=== PATIENT | female | born 1960 | race Caucasian/White ===

== ENCOUNTER 2018-03-12 16:01 | Emergency (ER) | payer SELFPAY ==
[2018-03-12 16:55] LABS: Bilirubin Negative (Negative); Blood, Urine Negative (Negative); Clarity CLEAR (Clear); Glucose, Urine (Dipstick) Negative (Negative); Leukocyte Negative (Negative); Nitrite Negative (Negative); Protein, Urine (Dipstick) Negative (Neg-Trace); Specific Gravity, Urine 1.017 (1.002-1.036); Urobilinogen 0.2 mg/dL (0.2-1.0)
[2018-03-12 17:08] LABS: #Eosinphils 0.1 thou/uL (0.0-0.7); #Lymphocytes 2.5 thou/uL (1.20-3.40); #Monocytes 0.5 thou/uL (0.11-0.59); #Neutrophils 3.3 thou/uL (1.40-6.50); %Basophils 0.4 % (0.0-1.0); %Eosinophils 1.1 % (0.0-10.0); %Lymphocytes 39.1 % (21.0-51.0); %Neutrophils 51.4 % (42.0-75.0); Hemoglobin 17.7 g/dL (12.0-16.0); Mean Corpuscular HGB CONC 35.1 g/dL (32.0-36.0); Mean Corpuscular Hemoglobin 33.8 pg (27.0-31.0); Mean Corpuscular Volume 96.2 fl (81.0-99.0); Platelet Count 213 thou/uL (130-400); RBC Distribution Width 12.2 % (11.5-14.5); Red Blood Cell (RBC) Count 5.24 mill/uL (4.20-5.40); White Blood Cell (WBC) Count 6.5 thou/uL (4.8-10.8)
[2018-03-12 17:30] LABS: ALT (SGPT) 36 U/L (8-55); AST (SGOT) 30 U/L (5-34); Albumin 4.2 g/dL (3.5-5.0); Alkaline Phosphatase 91 U/L (40-150); Anion Gap 16 mmol/L (10-20); BUN (Urea Nitrogen) 10 mg/dL (9.8-20.1); Bilirubin, Total 0.5 mg/dL (0.2-1.2); Calc. Creatinine Clearance 0 mL/min (70-130); Calcium 9.7 mg/dL (7.8-10.44); Carbon Dioxide 23 mmol/L (22-29); Chloride 105 mmol/L (98-107); Estimated GFR-MDRD 70; Globulin 2.9 g/dL (2.4-3.5); Glucose 89 mg/dL (70-105); Potassium 4.1 mmol/L (3.5-5.1); Protein, Total 7.1 g/dL (6.0-8.3); Sodium 140 mmol/L (136-145)
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
[2018-03-12 17:34] LABS: CKMB 0.8 ng/mL (0-6.6); Troponin I Less than 0.010 ng/mL (< 0.028)
== END 2018-03-12 19:44 | disposition home or self-care (01) ==
LOC: ERS 16:01
DX: T14.8XXA Other injury of unspecified body region, initial encounter (principal); F41.9 Anxiety disorder, unspecified; F32.9 Major depressive disorder, single episode, unspecified; F17.210 Nicotine dependence, cigarettes, uncomplicated; W19.XXXA Unspecified fall, initial encounter
CPT/HCPCS: 36415; 70450; 80053; 81003; 82553; 84484; 85025; 93005; 96360

== ENCOUNTER 2019-06-18 22:21 | Inpatient (IN) | payer BC, SELFPAY ==
[2019-06-18] MEDS ORDERED: fentaNYL Citrate/PF 2,000 MCG in Sodium Chloride 0.9% 60 ML IV SCH (22:33)
[2019-06-18 22:44] LABS: #Eosinphils 0.1 thou/uL (0.0-0.7); #Lymphocytes 0.8 thou/uL (1.20-3.40); #Monocytes 0.7 thou/uL (0.11-0.59); #Neutrophils 13.4 thou/uL (1.40-6.50); %Basophils 0.1 % (0.0-1.0); %Eosinophils 0.4 % (0.0-10.0); %Lymphocytes 5.2 % (21.0-51.0); %Monocytes 4.8 % (0.0-10.0); %Neutrophils 89.6 % (42.0-75.0); Hemoglobin 14.6 g/dL (12.0-16.0); Mean Corpuscular HGB CONC 34.8 g/dL (32.0-36.0); Mean Corpuscular Hemoglobin 32.3 pg (27.0-31.0); Mean Corpuscular Volume 92.8 fL (78.0-98.0); Platelet Count 221 thou/uL (130-400); RBC Distribution Width 11.3 % (11.5-14.5); Red Blood Cell (RBC) Count 4.53 mill/uL (4.20-5.40)
[2019-06-18 22:52] LABS: Bilirubin Negative (Negative); Blood, Urine 1+ (Negative); Clarity Clear (Clear); Glucose, Urine (Dipstick) Normal (Negative); Leukocyte Negative Leu/uL (Negative); Mucous/LPF Rare LPF (<2+); Nitrite Negative (Negative); Protein, Urine (Dipstick) 100 mg/dL (Neg-Trace); RBC/HPF 0-3 HPF (0-3); Squamous Epithelial 0-3 HPF (0-3); Urobilinogen Normal mg/dL (Less than 2); WBC/HPF 0-3 HPF (0-3)
[2019-06-18 22:56] LABS: Bacteria/HPF Rare-Few HPF (None Seen)
[2019-06-18 23:05] LABS: ALT (SGPT) 20 U/L (8-55); AST (SGOT) 20 U/L (5-34); Albumin 3.4 g/dL (3.5-5.0); Alkaline Phosphatase 76 U/L (40-150); Anion Gap 13 mmol/L (10-20); BUN (Urea Nitrogen) 15 mg/dL (9.8-20.1); Bilirubin, Total 0.3 mg/dL (0.2-1.2); CK (CPK) 57 U/L (29-168); Calc. Creatinine Clearance 0 mL/min (70-130); Calcium 8.2 mg/dL (7.8-10.44); Carbon Dioxide 19 mmol/L (22-29); Chloride 111 mmol/L (98-107); Estimated GFR-MDRD 62; Globulin 2.2 g/dL (2.4-3.5); Glucose 152 mg/dL (70-105); Potassium 3.7 mmol/L (3.5-5.1); Protein, Total 5.6 g/dL (6.0-8.3); Sodium 139 mmol/L (136-145)
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
[2019-06-18] MEDS ORDERED: FOSPHENYTOIN SODIUM IVPB SCH (23:15)
[2019-06-18] MEDS ORDERED: SODIUM CHLORIDE 0.9% IVPB SCH (23:15)
--- NOTE | 2019-06-18 23:30 | RAD ---
EXAM: Single view of the chest HISTORY: Seizure activity; altered mental status COMPARISON: 11/15/2012 FINDINGS: Single view of the chest shows a normal sized cardiomediastinal silhouette. An endotrachea l tube is seen with its tip at the upper border of the clavicles. An NG tube courses off the inferior aspect of the film. There is no evidence of consolidation, mass, or pleural effusion. The b ones are unremarkable. IMPRESSION: No evidence of acute cardiopulmonary disease
[2019-06-18] MEDS ORDERED: Acetaminophen 650 MG Suppository PR PRN (23:38)
[2019-06-18] MEDS ORDERED: Ondansetron PF 4 MG/2 ML Vial IVP PRN (23:38)
[2019-06-18] MEDS ORDERED: Ondansetron ODT 4 MG TAB PO PRN (23:38)
[2019-06-18] MEDS ORDERED: ALPRAZolam 0.5 MG TAB PER TUBE PRN (23:40)
[2019-06-18] MEDS ORDERED: Ventilator Sedation Protocol 1 EACH FS ONE (23:40)
[2019-06-18 23:41] LABS: Analyzer IN Cardio ER; CO2 Tension 34.8 mmHg (35.0-45.0); Calcium, Ionized 1.11 mmol/L (1.12-1.30); Carboxyhemoglobin (COHb) 0.3 gm% (0.0-3.0); Hemoglobin (Hb) 14.6 g/dL (12.0-16.0); O2 Tension (PaO2) 196.1 mmHg (80.0-100.0); Potassium - ABG Lab 3.61 mmol/L (3.70-5.30); pH, Arterial 7.33 (7.35-7.45)
[2019-06-18] MEDS ORDERED: DISCONTINUE PREVIOUS NARCOTIC PAIN MEDICATIONS AND BENZODIAZEPINES FS SCH (23:42)
[2019-06-18] MEDS ORDERED: Fentanyl BOLUS 250 ML IVPB PRN (23:42)
[2019-06-18] MEDS ORDERED: Morphine 2 MG/ML SYRINGE SLOW IVP PRN (23:42)
[2019-06-18] MEDS ORDERED: Propofol 1,000 MG/100 ML VIAL IV PRN (23:42)
[2019-06-18] MEDS ORDERED: Propofol BOLUS 1,000 MG/100 ML VIAL IV PRN (23:42)
[2019-06-18] MEDS ORDERED: Lorazepam 2 MG/ML VIAL SLOW IVP PRN (23:42)
[2019-06-18 23:51] LABS: Puncture Site RBA
[2019-06-19] MEDS: Sodium Chloride 0.9% 1,000 ML IV SCH ×3 (01:07→20:37)
[2019-06-19 02:42] LABS: #Lymphocytes 1.5 thou/uL (1.20-3.40); #Monocytes 0.6 thou/uL (0.11-0.59); #Neutrophils 10.2 thou/uL (1.40-6.50); %Basophils 0.1 % (0.0-1.0); %Eosinophils 0.2 % (0.0-10.0); %Lymphocytes 12.3 % (21.0-51.0); %Monocytes 4.9 % (0.0-10.0); %Neutrophils 82.5 % (42.0-75.0); Hemoglobin 14.2 g/dL (12.0-16.0); Mean Corpuscular HGB CONC 34.6 g/dL (32.0-36.0); Mean Corpuscular Hemoglobin 32.4 pg (27.0-31.0); Mean Corpuscular Volume 93.5 fL (78.0-98.0); Mean Platelet Volume 6.3 fL (7.4-10.4); Platelet Count 193 thou/uL (130-400); RBC Distribution Width 11.5 % (11.5-14.5); White Blood Cell (WBC) Count 12.3 thou/uL (4.8-10.8)
[2019-06-19] MEDS ORDERED: Sodium Chloride 0.9% 500 ML IVPB SCH (02:45)
[2019-06-19 02:58] LABS: Lactic Acid 2.7 mmol/L (0.5-2.2)
[2019-06-19 03:08] LABS: Anion Gap 12 mmol/L (10-20); BUN (Urea Nitrogen) 13 mg/dL (9.8-20.1); Calc. Creatinine Clearance 59 mL/min (70-130); Calcium 7.9 mg/dL (7.8-10.44); Carbon Dioxide 20 mmol/L (22-29); Chloride 113 mmol/L (98-107); Estimated GFR-MDRD 63; Glucose 156 mg/dL (70-105); Sodium 141 mmol/L (136-145)
[2019-06-19] MEDS ORDERED: Sodium Chloride 0.9% 1,000 ML IV SCH (04:45)
[2019-06-19] MEDS ORDERED: Vancomycin HCl 1 GM in Premix Bag 1 BAG IVPB SCH (05:00)
[2019-06-19] MEDS: Piperacillin/Tazobactam 4.5 GM in Sodium Chloride 0.9% 100 ML IVPB SCH ×3 (05:01→21:15)
[2019-06-19] MEDS: Enoxaparin Sodium 40 MG/0.4 ML SYRINGE SC SCH (07:34)
[2019-06-19] MEDS: Famotidine/PF 20 mg/2ml Vial SLOW IVP SCH ×2 (07:34→20:36)
[2019-06-19] MEDS ORDERED: levETIRAcetam 500 mg/5 ml Oral Solution PER TUBE SCH (09:00)
[2019-06-19] MEDS ORDERED: DC Sedation Protocol FS ONE (10:40)
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
[2019-06-19 14:14] VITALS: BMI 19.8
[2019-06-20] MEDS: Piperacillin/Tazobactam 4.5 GM in Sodium Chloride 0.9% 100 ML IVPB SCH ×3 (05:18→21:57)
[2019-06-20] MEDS: Famotidine/PF 20 mg/2ml Vial SLOW IVP SCH ×2 (07:09→20:13)
[2019-06-20] MEDS: Enoxaparin Sodium 40 MG/0.4 ML SYRINGE SC SCH (07:09)
--- NOTE | 2019-06-20 09:48 | PRG ---
DATE OF SERVICE: 06/20/2019 SUBJECTIVE: She was successfully extubated yesterday. She is sitting up in a chair. I am not sure what her neurologic baseline is. She seems dysarthric, but I have a feeling this is probably chronic. OBJECTIVE: VITAL SIGNS: Temperature 98.6, pulse , blood pressure 102/67, O2 saturation 97%. Intake for 24 hours 2177, output 3575. HEENT: Unremarkable. NECK: No adenopathy, JVD, or bruits. LUNGS: Clear. CARDIAC: S1 and S2. Regular. ABDOMEN: Soft, nontender. EXTREMITIES: No edema. LABORATORY DATA: She had one blood culture grew out gram-positive cocci in clusters. This is likely a contaminant. No other labs were done today. ASSESSMENT: 1. Status post intubation for seizure. 2. Status post mechanical ventilation. PLAN: She can be transferred out to the stroke floor. If the culture comes back as methicillin-sensitive Staphylococcus epidermidis, then I would probably stop the antibiotics. Job ID: [id number]
[2019-06-20] MEDS: Sodium Chloride 0.9% 1,000 ML IV SCH (11:33)
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
[2019-06-20] MEDS: Lorazepam 2 MG/ML VIAL SLOW IVP PRN (15:19)
[2019-06-21] MEDS: Piperacillin/Tazobactam 4.5 GM in Sodium Chloride 0.9% 100 ML IVPB SCH ×3 (06:11→21:57)
[2019-06-21] MEDS: Sodium Chloride 0.9% 1,000 ML IV SCH (06:12)
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
[2019-06-21] MEDS: Famotidine/PF 20 mg/2ml Vial SLOW IVP SCH ×2 (08:52→20:17)
[2019-06-21] MEDS: Enoxaparin Sodium 40 MG/0.4 ML SYRINGE SC SCH (08:53)
--- NOTE | 2019-06-21 11:32 | PDOC.HOSPP ---
- Subjective Encounter Date: 06/21/19 Encounter Time: 11:30 Subjective: Days she is doing ok. Denies any pain. Wants to eat. - Objective Vital Signs & Weight: Vital Signs (12 hours) Temp Pulse Pulse Pulse Resp BP BP 06/21/19 09:21 74 72 119/77 115/74 06/21/19 08:00 97.6 F 70 16 06/21/19 04:00 98.1 F 74 18 06/21/19 00:00 97.8 F 67 16 BP Pulse Ox 06/21/19 09:21 06/21/19 08:00 118/79 97 06/21/19 04:00 118/72 95 06/21/19 00:00 112/76 98 Weight Admit Weight 121 lb 4 oz Weight 126 lb 6.4 oz Most Recent Monitor Data Heart Rate from ECG 77 NIBP 110/72 NIBP BP-Mean 84 Respiration from ECG 21 SpO2 97 I&O: 06/20/19 06/21/19 06/22/19 06:59 06:59 06:59 Intake Total 2177 863 Output Total 3575 1085 350 Balance -1398 -222 -350 Result Diagrams: 06/19/19 02:35 06/19/19 02:35 Hospitalist ROS - Medication Medications: Active Medications Generic Name Dose Route Start Last Admin Trade Name Colby PRN Reason Stop Dose Admin Enoxaparin Sodium 40 mg 06/19/19 09:00 06/21/19 08:53 Lovenox SC 40 mg 0900 [place] Administration Famotidine 20 mg 06/19/19 09:00 06/21/19 08:52 Pepcid SLOW IVP 20 mg BID [place] Administration Sodium Chloride 1,000 mls @ 75 mls/hr 06/18/19 23:45 06/21/19 06:12 Normal Saline 0.9% IV 1,000 mls .[id number] [place] Administration Piperacillin Sod/Tazobactam 100 mls @ 200 mls/hr 06/19/19 06:00 06/21/19 06: 11 Sod 4.5 gm/ Sodium Chloride IVPB 100 mls Q8HR [place] Administration Levetiracetam 500 mg/ Device 100 mls @ 200 mls/hr 06/19/19 21:00 06/21/19 08: 53 IVPB 100 mls BID [place] Administration Lorazepam 1 mg 06/20/19 14:39 06/20/19 15:19 Ativan SLOW IVP 1 mg Q6H PRN Administration Anxiety/Agitation Sodium Chloride 10 ml 06/19/19 21:00 06/21/19 08:54 Flush - Normal Saline IVF Not Given Q12HR [place] - Exam General Appearance: NAD ENT - other findings: Right hemicraniotomy defect. Heart: RRR, no murmur, no gallops, no rubs, normal peripheral pulses Respiratory: CTAB, no wheezes, no rales, no ronchi, normal chest expansion, no tachypnea, normal percussion Gastrointestinal: soft, non-tender, non-distended, normal bowel sounds Extremities: no cyanosis, no clubbing, no edema Neurological - other findings: Some motor delay. More interactive today. Psychiatric - other findings: Pleasant. Hosp A/P (1) Seizure Code(s): R56.9 - UNSPECIFIED CONVULSIONS Status: Acute (2) Seizure disorder Code(s): G40.909 - EPILEPSY, UNSP, NOT INTRACTABLE, WITHOUT STATUS EPILEPTICUS Status: Acute (3) TBI (traumatic brain injury) Code(s): S06.9X9A - UNSP INTRACRANIAL INJURY W LOC OF UNSP DURATION, INIT Status: Acute - Plan Stable on Keppra. Discussed with her brother/primary certified caregiver. Working on placement. Discussed with CM. Got up yesterday and accidentally pulled out Mccarthy. Discussed with Urology. Will remove it to avoid any further issues. Discussed with CAR EXAMINER. Seems to be doing better with modified consistency today. Will not do the MBS and let her eat.
[2019-06-21] MEDS: Lorazepam 2 MG/ML VIAL SLOW IVP PRN (20:30)
[2019-06-22] MEDS: Sodium Chloride 0.9% 1,000 ML IV SCH ×2 (01:04→18:48)
[2019-06-22] MEDS: Piperacillin/Tazobactam 4.5 GM in Sodium Chloride 0.9% 100 ML IVPB SCH (07:32)
[2019-06-22] MEDS: Acetaminophen 325 MG TAB PO PRN ×2 (09:44→18:48)
[2019-06-22] MEDS: Enoxaparin Sodium 40 MG/0.4 ML SYRINGE SC SCH (09:44)
[2019-06-22] MEDS: Famotidine/PF 20 mg/2ml Vial SLOW IVP SCH ×2 (10:09→20:40)
[2019-06-22] MEDS: Lorazepam 2 MG/ML VIAL SLOW IVP PRN (11:06)
--- NOTE | 2019-06-22 16:25 | PDOC.HOSPP ---
- Subjective Subjective: Doing ok. No complaints. - Objective Vital Signs & Weight: Vital Signs (12 hours) Temp Pulse Pulse Pulse Resp BP BP 06/22/19 15:48 97.6 F 71 16 06/22/19 12:00 98.1 F 80 16 06/22/19 09:09 79 78 111/68 102/65 06/22/19 08:00 99.0 F 81 16 06/22/19 05:02 BP Pulse Ox 06/22/19 15:48 97/63 96 06/22/19 12:00 120/83 93 L 06/22/19 09:09 06/22/19 08:00 111/70 92 L 06/22/19 05:02 103/61 Weight Admit Weight 121 lb 4 oz Weight 126 lb 6.4 oz Most Recent Monitor Data Heart Rate from ECG 77 NIBP 110/72 NIBP BP-Mean 84 Respiration from ECG 21 SpO2 97 I&O: 06/21/19 06/22/19 06/23/19 06:59 06:59 06:59 Intake Total 863 1760 1300 Output Total 1085 700 Balance -222 1060 1300 Result Diagrams: 06/19/19 02:35 06/19/19 02:35 Hospitalist ROS - Medication Medications: Active Medications Generic Name Dose Route Start Last Admin Trade Name Freq PRN Reason Stop Dose Admin Acetaminophen 650 mg 06/18/19 23:38 06/22/19 09:44 Tylenol PO 650 mg Q4H PRN Administration Headache/Fever/Mild Pain (1-3) Enoxaparin Sodium 40 mg 06/19/19 09:00 06/22/19 09:44 Lovenox SC 40 mg 09 [place] Administration Famotidine 20 mg 06/19/19 09:00 06/22/19 10:09 Pepcid SLOW IVP 20 mg BID [place] Administration Sodium Chloride 1,000 mls @ 75 mls/hr 06/18/19 23:45 06/22/19 01:04 Normal Saline 0.9% IV 1,000 mls .[id number] [place] Administration Levetiracetam 500 mg/ Device 100 mls @ 200 mls/hr 06/19/19 21:00 06/22/19 09: 45 IVPB 100 mls BID [place] Administration Lorazepam 1 mg 06/20/19 14:39 06/22/19 11:06 Ativan SLOW IVP 1 mg Q6H PRN Administration Anxiety/Agitation Sodium Chloride 10 ml 06/19/19 21:00 06/22/19 09:45 Flush - Normal Saline IVF Not Given Q12HR [place] - Exam General Appearance: NAD, awake alert ENT - other findings: Skin flap over right lalo-craniectomy. Heart: RRR, no murmur, no gallops, no rubs, normal peripheral pulses Respiratory: CTAB, no wheezes, no rales, no ronchi, normal chest expansion, no tachypnea, normal percussion Gastrointestinal: soft, non-tender, non-distended, normal bowel sounds, no palpable masses, no hepatomegaly, no splenomegaly, no bruit Extremities: no cyanosis, no clubbing, no edema Neurological - other findings: Left weakness. Psychiatric - other findings: Pleasant. Doesn't talk much. Hosp A/P (1) Seizure Code(s): R56.9 - UNSPECIFIED CONVULSIONS Status: Acute (2) Seizure disorder Code(s): G40.909 - EPILEPSY, UNSP, NOT INTRACTABLE, WITHOUT STATUS EPILEPTICUS Status: Acute (3) TBI (traumatic brain injury) Code(s): S06.9X9A - UNSP INTRACRANIAL INJURY W LOC OF UNSP DURATION, INIT Status: Acute - Plan Stable on Keppra. Discussed with her brother/primary career technical education teacher. Working on placement. Discussed with CM. Fabio stringer. Eating ok. Helmet provided.
[2019-06-23] MEDS: Sodium Chloride 0.9% 1,000 ML IV SCH ×2 (01:20→21:09)
[2019-06-23] MEDS: Lorazepam 2 MG/ML VIAL SLOW IVP PRN ×2 (01:58→09:52)
[2019-06-23] MEDS: Acetaminophen 325 MG TAB PO PRN ×2 (04:14→16:38)
[2019-06-23] MEDS: Famotidine/PF 20 mg/2ml Vial SLOW IVP SCH (09:14)
[2019-06-23] MEDS: Enoxaparin Sodium 40 MG/0.4 ML SYRINGE SC SCH (09:18)
[2019-06-23] MEDS: ALPRAZolam 0.5 MG TAB PO PRN ×2 (13:45→21:38)
[2019-06-23] MEDS ORDERED: HYDROcodone/Acetaminophen 7.5/325 mg Tablet PO SCH (21:00)
[2019-06-23] MEDS: levETIRAcetam 500 MG TAB PO SCH (21:37)
--- NOTE | 2019-06-24 08:21 | PDOC.HOSPP ---
- Subjective Encounter Date: 06/23/19 Subjective: Reports she is having some diarrhea. Denies abdominal pain. Denies any other problems. - Objective Vital Signs & Weight: Vital Signs (12 hours) Temp Pulse Resp BP BP Pulse Ox 06/24/19 07:54 98.3 F 70 20 122/76 96 06/24/19 06:33 97 06/24/19 04:00 97.6 F 70 16 102/75 97 06/23/19 23:27 98.3 F 70 16 111/75 97 Weight Admit Weight 121 lb 4 oz Weight 126 lb 8 oz Most Recent Monitor Data Heart Rate from ECG 77 NIBP 110/72 NIBP BP-Mean 84 Respiration from ECG 21 SpO2 97 I&O: 06/23/19 06/24/19 06/25/19 06:59 06:59 06:59 Intake Total 4460 1495 Output Total 900 200 Balance 3560 1295 Result Diagrams: 06/19/19 02:35 06/19/19 02:35 Hospitalist ROS - Medication Medications: Active Medications Generic Name Dose Route Start Last Admin Trade Name Freq PRN Reason Stop Dose Admin Acetaminophen 650 mg 06/18/19 23:38 06/23/19 16:38 Tylenol PO 650 mg Q4H PRN Administration Headache/Fever/Mild Pain (1-3) Alprazolam 0.5 mg 06/23/19 10:15 06/23/19 21:38 Xanax PO 0.5 mg Q6H PRN Administration Anxiety/Agitation Enoxaparin Sodium 40 mg 06/19/19 09:00 06/23/19 09:18 Lovenox SC 40 mg 0900 [place] Administration Levetiracetam 500 mg 06/23/19 21:00 06/23/19 21:37 Keppra PO 500 mg BID [place] Administration Lorazepam 1 mg 06/20/19 14:39 06/23/19 09:52 Ativan SLOW IVP 1 mg Q6H PRN Administration Anxiety/Agitation Sodium Chloride 10 ml 06/19/19 21:00 06/23/19 21:38 Flush - Normal Saline IVF 10 ml Q12HR [place] Administration - Exam General Appearance: NAD, awake alert ENT - other findings: Skin flap over right lalo-craniectomy Heart: RRR, no murmur, no gallops, no rubs, normal peripheral pulses Respiratory: CTAB, no wheezes, no rales, no ronchi, normal chest expansion, no tachypnea, normal percussion Gastrointestinal: soft, non-tender, non-distended, normal bowel sounds, no palpable masses, no hepatomegaly, no splenomegaly, no bruit Skin: normal turgor, no lesions, no rashes Neurological - other findings: some mild psychomotor delay. Hosp A/P (1) Seizure Code(s): R56.9 - UNSPECIFIED CONVULSIONS Status: Acute (2) Seizure disorder Code(s): G40.909 - EPILEPSY, UNSP, NOT INTRACTABLE, WITHOUT STATUS EPILEPTICUS Status: Acute (3) TBI (traumatic brain injury) Code(s): S06.9X9A - UNSP INTRACRANIAL INJURY W LOC OF UNSP DURATION, INIT Status: Acute (4) Diarrhea Code(s): R19.7 - DIARRHEA, UNSPECIFIED Status: Acute - Plan Stable on Keppra. Discussed with her brother/primary home care music therapist. Working on placement. Discussed with CM. Fabio stringer. Eating ok. Helmet provided. C diff negative.
[2019-06-24] MEDS: ALPRAZolam 0.5 MG TAB PO PRN ×3 (09:56→21:59)
[2019-06-24] MEDS: levETIRAcetam 500 MG TAB PO SCH ×2 (09:56→21:59)
[2019-06-24] MEDS: Enoxaparin Sodium 40 MG/0.4 ML SYRINGE SC SCH (09:56)
[2019-06-24] MEDS: Acetaminophen 325 MG TAB PO PRN ×4 (09:56→22:02)
--- NOTE | 2019-06-24 13:38 | PDOC.HOSPP ---
- Subjective Subjective: Doing ok. Still having loose stools. Denies abdominal pain. Says the diarrhea is "just there" and not bothersome. - Objective Vital Signs & Weight: Vital Signs (12 hours) Temp Pulse Resp BP BP Pulse Ox 06/24/19 11:45 98.3 F 87 20 129/71 96 06/24/19 07:54 98.3 F 70 20 122/76 96 06/24/19 07:40 96 06/24/19 06:33 97 06/24/19 04:00 97.6 F 70 16 102/75 97 Weight Admit Weight 121 lb 4 oz Weight 126 lb 8 oz Most Recent Monitor Data Heart Rate from ECG 77 NIBP 110/72 NIBP BP-Mean 84 Respiration from ECG 21 SpO2 97 I&O: 06/23/19 06/24/19 06/25/19 06:59 06:59 06:59 Intake Total 4460 1495 237 Output Total 900 200 Balance 3560 1295 237 Result Diagrams: 06/19/19 02:35 06/19/19 02:35 Hospitalist ROS - Medication Medications: Active Medications Generic Name Dose Route Start Last Admin Trade Name Freq PRN Reason Stop Dose Admin Acetaminophen 650 mg 06/18/19 23:38 06/24/19 09:56 Tylenol PO 650 mg Q4H PRN Administration Headache/Fever/Mild Pain (1-3) Alprazolam 0.5 mg 06/23/19 10:15 06/24/19 09:56 Xanax PO 0.5 mg Q6H PRN Administration Anxiety/Agitation Enoxaparin Sodium 40 mg 06/19/19 09:00 06/24/19 09:56 Lovenox SC 40 mg 0900 [place] Administration Levetiracetam 500 mg 06/23/19 21:00 06/24/19 09:56 Keppra PO 500 mg BID [place] Administration Lorazepam 1 mg 06/20/19 14:39 06/23/19 09:52 Ativan SLOW IVP 1 mg Q6H PRN Administration Anxiety/Agitation Sodium Chloride 10 ml 06/19/19 21:00 06/24/19 09:56 Flush - Normal Saline IVF 10 ml Q12HR [place] Administration - Exam General Appearance: NAD ENT - other findings: Skin flap over right hemicraniotomy. Heart: RRR, no murmur, no gallops, no rubs, normal peripheral pulses Respiratory: CTAB, no wheezes, no rales, no ronchi, normal chest expansion, no tachypnea, normal percussion Gastrointestinal: soft, non-tender, non-distended, normal bowel sounds, no palpable masses, no hepatomegaly Skin: normal turgor Neurological: cranial nerve grossly intact Psychiatric - other findings: Pleasant. Slightly flat. Mildly delayed. Hosp A/P (1) Seizure Code(s): R56.9 - UNSPECIFIED CONVULSIONS Status: Acute (2) Seizure disorder Code(s): G40.909 - EPILEPSY, UNSP, NOT INTRACTABLE, WITHOUT STATUS EPILEPTICUS Status: Acute (3) TBI (traumatic brain injury) Code(s): S06.9X9A - UNSP INTRACRANIAL INJURY W LOC OF UNSP DURATION, INIT Status: Acute (4) Diarrhea Code(s): R19.7 - DIARRHEA, UNSPECIFIED Status: Acute - Plan Stable on Keppra. Working on placement. Discussed with CM. Mccarthy out. Eating ok. Helmet provided. C diff negative. Continue to monitor the diarrhea for now. Not likely infectious.
[2019-06-24] MEDS: Lorazepam 2 MG/ML VIAL SLOW IVP PRN (20:38)
[2019-06-24] MEDS: Saccharomyces boulardii 250 MG CAP PO SCH (21:59)
[2019-06-25] MEDS: levETIRAcetam 500 MG TAB PO SCH ×2 (08:26→20:06)
[2019-06-25] MEDS: Saccharomyces boulardii 250 MG CAP PO SCH ×2 (08:26→20:06)
[2019-06-25] MEDS: Enoxaparin Sodium 40 MG/0.4 ML SYRINGE SC SCH (08:26)
[2019-06-25] MEDS: ALPRAZolam 0.5 MG TAB PO PRN ×3 (08:31→20:06)
[2019-06-25] MEDS: Acetaminophen 325 MG TAB PO PRN ×2 (13:55→20:11)
--- NOTE | 2019-06-25 15:26 | PDOC.HOSPP ---
- Subjective Subjective: Reports discomfort in her hips. Diarrhea is improving. - Objective Vital Signs & Weight: Vital Signs (12 hours) Temp Pulse Resp BP Pulse Ox 06/25/19 12:03 97.8 F 76 14 128/77 95 06/25/19 08:00 97.4 F L 82 16 132/83 97 Weight Admit Weight 121 lb 4 oz Weight 126 lb 8 oz Most Recent Monitor Data Heart Rate from ECG 77 NIBP 110/72 NIBP BP-Mean 84 Respiration from ECG 21 SpO2 97 I&O: 06/24/19 06/25/19 06/26/19 06:59 06:59 06:59 Intake Total 1495 1014 Output Total 200 200 Balance 1295 814 Result Diagrams: 06/19/19 02:35 06/19/19 02:35 Hospitalist ROS - Medication Medications: Active Medications Generic Name Dose Route Start Last Admin Trade Name Freq PRN Reason Stop Dose Admin Acetaminophen 650 mg 06/18/19 23:38 06/25/19 13:55 Tylenol PO 650 mg Q4H PRN Administration Headache/Fever/Mild Pain (1-3) Alprazolam 0.5 mg 06/23/19 10:15 06/25/19 13:55 Xanax PO 0.5 mg Q6H PRN Administration Anxiety/Agitation Enoxaparin Sodium 40 mg 06/19/19 09:00 06/25/19 08:26 Lovenox SC 40 mg 0900 [place] Administration Levetiracetam 500 mg 06/23/19 21:00 06/25/19 08:26 Keppra PO 500 mg BID [place] Administration Lorazepam 1 mg 06/20/19 14:39 06/24/19 20:38 Ativan SLOW IVP 1 mg Q6H PRN Administration Anxiety/Agitation Saccharomyces Boulardii 250 mg 06/24/19 21:00 06/25/19 08:26 Florastor PO 250 mg BID [place] Administration Sodium Chloride 10 ml 06/19/19 21:00 06/25/19 08:33 Flush - Normal Saline IVF 10 ml Q12HR [place] Administration - Exam General Appearance: NAD, awake alert Heart: RRR, no murmur, no gallops, no rubs, normal peripheral pulses Respiratory: CTAB, no wheezes, no rales, no ronchi, normal chest expansion, no tachypnea, normal percussion Gastrointestinal: soft, non-tender, non-distended, normal bowel sounds, no palpable masses, no hepatomegaly, no splenomegaly, no bruit Skin: normal turgor Musculoskeletal: normal tone Psychiatric: normal affect, normal behavior Psychiatric - other findings: Talking a little more. Hosp A/P (1) Seizure Code(s): R56.9 - UNSPECIFIED CONVULSIONS Status: Acute (2) Seizure disorder Code(s): G40.909 - EPILEPSY, UNSP, NOT INTRACTABLE, WITHOUT STATUS EPILEPTICUS Status: Acute (3) TBI (traumatic brain injury) Code(s): S06.9X9A - UNSP INTRACRANIAL INJURY W LOC OF UNSP DURATION, INIT Status: Acute (4) Diarrhea Code(s): R19.7 - DIARRHEA, UNSPECIFIED Status: Acute - Plan Stable on Keppra. Working on placement. Discussed with CM. Eating ok. Helmet provided. C diff negative. Diarrhea resolving. Continue PT.
[2019-06-26] MEDS: ALPRAZolam 0.5 MG TAB PO PRN ×3 (06:42→20:06)
[2019-06-26] MEDS: Acetaminophen 325 MG TAB PO PRN ×2 (08:51→12:50)
[2019-06-26] MEDS: Enoxaparin Sodium 40 MG/0.4 ML SYRINGE SC SCH (08:52)
[2019-06-26] MEDS: Saccharomyces boulardii 250 MG CAP PO SCH ×2 (08:52→20:05)
[2019-06-26] MEDS: levETIRAcetam 500 MG TAB PO SCH ×2 (08:52→20:05)
--- NOTE | 2019-06-26 11:55 | PDOC.HOSPP ---
- Subjective Encounter Date: 06/26/19 Encounter Time: 11:50 Subjective: f/u for seizure disorder and deconditioning. Ambulated with PT and SBA. - Objective Vital Signs & Weight: Vital Signs (12 hours) Temp Pulse Pulse Pulse Resp BP BP 06/26/19 11:51 98.1 F 85 16 06/26/19 09:23 80 84 140/69 133/80 06/26/19 08:38 06/26/19 08:00 97.6 F 71 18 06/26/19 04:59 06/26/19 04:00 97.7 F 61 16 06/26/19 00:00 97.4 F L 68 16 BP Pulse Ox 06/26/19 11:51 120/72 98 06/26/19 09:23 06/26/19 08:38 96 06/26/19 08:00 136/101 H 96 06/26/19 04:59 96 06/26/19 04:00 122/73 96 06/26/19 00:00 107/67 96 Weight Admit Weight 121 lb 4 oz Weight 126 lb 8 oz Most Recent Monitor Data Heart Rate from ECG 77 NIBP 110/72 NIBP BP-Mean 84 Respiration from ECG 21 SpO2 97 I&O: 06/25/19 06/26/19 06/27/19 06:59 06:59 06:59 Intake Total 1014 710 Output Total 200 3 Balance 814 707 Result Diagrams: 06/19/19 02:35 06/19/19 02:35 EKG Reviewed by me: Yes (Tele - SR) Hospitalist ROS - Medication Medications: Active Medications Generic Name Dose Route Start Last Admin Trade Name Freq PRN Reason Stop Dose Admin Acetaminophen 650 mg 06/18/19 23:38 06/26/19 08:51 Tylenol PO 650 mg Q4H PRN Administration Headache/Fever/Mild Pain (1-3) Alprazolam 0.5 mg 06/23/19 10:15 06/26/19 06:42 Xanax PO 0.5 mg Q6H PRN Administration Anxiety/Agitation Enoxaparin Sodium 40 mg 06/19/19 09:00 06/26/19 08:52 Lovenox SC 40 mg 0900 [place] Administration Levetiracetam 500 mg 06/23/19 21:00 06/26/19 08:52 Keppra PO 500 mg BID [place] Administration Lorazepam 1 mg 06/20/19 14:39 06/24/19 20:38 Ativan SLOW IVP 1 mg Q6H PRN Administration Anxiety/Agitation Saccharomyces Boulardii 250 mg 06/24/19 21:00 06/26/19 08:52 Florastor PO 250 mg BID [place] Administration Sodium Chloride 10 ml 06/19/19 21:00 06/26/19 08:54 Flush - Normal Saline IVF 10 ml Q12HR [place] Administration - Exam General Appearance: NAD, awake alert Eye: PERRL, anicteric sclera ENT: no oropharyngeal lesions ENT - other findings: cranial deformity, chronic Neck: supple, symmetric, no JVD, no thyromegaly Heart: RRR, no murmur, no gallops, no rubs, normal peripheral pulses Respiratory: CTAB, no wheezes, no rales, no ronchi Gastrointestinal: soft, non-tender, non-distended, normal bowel sounds, no palpable masses Extremities: no cyanosis, no clubbing Skin: normal turgor, no lesions Neurological: cranial nerve grossly intact, no new deficit Musculoskeletal: generalized weakness Hosp A/P (1) Seizure Code(s): R56.9 - UNSPECIFIED CONVULSIONS Status: Acute Plan: No recurrent seizures reported, continue Keppra (2) Seizure disorder Code(s): G40.909 - EPILEPSY, UNSP, NOT INTRACTABLE, WITHOUT STATUS EPILEPTICUS Status: Acute Plan: continue Keppra and monitor for recurrence (3) TBI (traumatic brain injury) Code(s): S06.9X9A - UNSP INTRACRANIAL INJURY W LOC OF UNSP DURATION, INIT Status: Chronic Plan: Continue helmet (4) Tobacco abuse Code(s): Z72.0 - TOBACCO USE Status: Chronic Plan: Tobacco cessation resources - Plan PT/OT, social media assistant, out of bed/ambulate, DVT proph w/SCDs Stable currently Continue Keppra 500mg BID OOB/PT for mobilization CM for SNF options Seizure precautions Likely d/c in 24-48h
--- NOTE | 2019-06-26 13:22 | EKG ---
Test Reason : Blood Pressure : / mmHG Vent. Rate : 088 BPM Atrial Rate : 088 BPM P-R Int : 132 ms QRS Dur : 086 ms QT Int : 354 ms P-R-T Axes : -38 092 061 degrees QTc Int : 428 ms Sinus rhythm Rightward axis Septal infarct , age undetermined Abnormal ECG Left ventricular hypertrophy Confirmed by ANGELIA WALLACE, ARIANNA Holliday ([id number]), school photograph editor JUSTYNA DONNELLY ([id number]) on 06/26/2019 1:21:48 PM Referred By: Confirmed By:ARIANNA GALAN MD
[2019-06-27] MEDS: ALPRAZolam 0.5 MG TAB PO PRN ×3 (05:45→18:20)
[2019-06-27] MEDS: levETIRAcetam 500 MG TAB PO SCH ×2 (08:37→20:49)
[2019-06-27] MEDS: Enoxaparin Sodium 40 MG/0.4 ML SYRINGE SC SCH (08:37)
[2019-06-27] MEDS: Saccharomyces boulardii 250 MG CAP PO SCH ×2 (08:37→20:49)
[2019-06-27] MEDS: Acetaminophen 325 MG TAB PO PRN (13:51)
--- NOTE | 2019-06-27 14:21 | PDOC.HOSPP ---
- Subjective Encounter Date: 06/27/19 Encounter Time: 14:20 Subjective: f/u for recurrent seizures on current Keppra. No new seizure activity per nursing. No new issues reported. - Objective Vital Signs & Weight: Vital Signs (12 hours) Temp Pulse Resp BP BP Pulse Ox 06/27/19 12:00 98.2 F 57 L 16 142/86 H 95 06/27/19 08:35 99 06/27/19 08:00 97.6 F 84 18 134/67 99 06/27/19 03:56 97.5 F L 64 16 124/76 97 Weight Admit Weight 121 lb 4 oz Weight 126 lb 8 oz Most Recent Monitor Data Heart Rate from ECG 77 NIBP 110/72 NIBP BP-Mean 84 Respiration from ECG 21 SpO2 97 I&O: 06/26/19 06/27/19 06/28/19 06:59 06:59 06:59 Intake Total 710 1310 Output Total 3 Balance 707 1310 Result Diagrams: 06/19/19 02:35 06/19/19 02:35 EKG Reviewed by me: Yes (Tele - SR) Hospitalist ROS - Medication Medications: Active Medications Generic Name Dose Route Start Last Admin Trade Name Freq PRN Reason Stop Dose Admin Acetaminophen 650 mg 06/18/19 23:38 06/27/19 13:51 Tylenol PO 650 mg Q4H PRN Administration Headache/Fever/Mild Pain (1-3) Alprazolam 0.5 mg 06/23/19 10:15 06/27/19 11:29 Xanax PO 0.5 mg Q6H PRN Administration Anxiety/Agitation Enoxaparin Sodium 40 mg 06/19/19 09:00 06/27/19 08:37 Lovenox SC 40 mg 0900 [place] Administration Levetiracetam 500 mg 06/23/19 21:00 06/27/19 08:37 Keppra PO 500 mg BID [place] Administration Lorazepam 1 mg 06/20/19 14:39 06/24/19 20:38 Ativan SLOW IVP 1 mg Q6H PRN Administration Anxiety/Agitation Saccharomyces Boulardii 250 mg 06/24/19 21:00 06/27/19 08:37 Florastor PO 250 mg BID [place] Administration Sodium Chloride 10 ml 06/19/19 21:00 06/27/19 08:46 Flush - Normal Saline IVF 10 ml Q12HR [place] Administration - Exam General Appearance: NAD, awake alert Eye: PERRL, anicteric sclera Eye - other findings: post-surgical changes of R scalp, chronic ENT: no oropharyngeal lesions Neck: supple, symmetric, no JVD, no thyromegaly Heart: RRR, no murmur, no gallops, no rubs, normal peripheral pulses Respiratory: CTAB, no wheezes, no rales, no ronchi, normal chest expansion Gastrointestinal: soft, non-tender, non-distended, normal bowel sounds Extremities: no cyanosis, no clubbing, no edema Skin: normal turgor Neurological: cranial nerve grossly intact, no new deficit Musculoskeletal: normal tone Psychiatric: oriented to person, oriented to place Hosp A/P (1) Seizure Code(s): R56.9 - UNSPECIFIED CONVULSIONS Status: Acute Plan: Continue Keppra 500mg BID, monitor for recurrent seizures, outpt Neurology follow up (2) Seizure disorder Code(s): G40.909 - EPILEPSY, UNSP, NOT INTRACTABLE, WITHOUT STATUS EPILEPTICUS Status: Acute Plan: See above (3) TBI (traumatic brain injury) Code(s): S06.9X9A - UNSP INTRACRANIAL INJURY W LOC OF UNSP DURATION, INIT Status: Chronic (4) Tobacco abuse Code(s): Z72.0 - TOBACCO USE Status: Chronic Plan: Tobacco cessation resources - Plan Stable currently Continue Keppra 500mg BID OOB/PT for mobilization CM for SNF options likely in [place] Seizure precautions Likely d/c in 24-48h
[2019-06-27] MEDS: Lorazepam 2 MG/ML VIAL SLOW IVP PRN (16:28)
[2019-06-28] MEDS: Lorazepam 2 MG/ML VIAL SLOW IVP PRN ×2 (00:01→10:03)
[2019-06-28] MEDS: ALPRAZolam 0.5 MG TAB PO PRN ×2 (06:33→12:42)
[2019-06-28] MEDS: levETIRAcetam 500 MG TAB PO SCH (10:02)
[2019-06-28] MEDS: Saccharomyces boulardii 250 MG CAP PO SCH (10:02)
[2019-06-28] MEDS: Enoxaparin Sodium 40 MG/0.4 ML SYRINGE SC SCH (10:03)
[2019-06-28] MEDS: Acetaminophen 325 MG TAB PO PRN (10:03)
[2019-06-28 12:32] VITALS: BP 134/80; TEMP 98.5
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
== END 2019-06-28 13:52 | DRG 100 ==
LOC: ERS 22:21 → CCU 06-19 00:27 → 2SE 06-20 11:21
PROVIDERS: ADMIT Hospitalist; ATTEND Hospitalist
PROC: 5A1945Z Respiratory Ventilation, 24-96 Consecutive Hours (ICD-10-PCS; principal; 2019-06-19)
PROC: 0BH17EZ Insertion of Endotracheal Airway into Trachea, Via Natural or Artificial Opening (ICD-10-PCS; 2019-06-19)
DX: G40.909 Epilepsy, unspecified, not intractable, without status epilepticus (principal); J96.00 Acute respiratory failure, unspecified whether with hypoxia or hypercapnia; R65.10 Systemic inflammatory response syndrome (SIRS) of non-infectious origin without acute organ dysfunction; E87.2 Acidosis; M86.9 Osteomyelitis, unspecified; I69.954 Hemiplegia and hemiparesis following unspecified cerebrovascular disease affecting left non-dominant side; F41.9 Anxiety disorder, unspecified; F32.9 Major depressive disorder, single episode, unspecified; F17.210 Nicotine dependence, cigarettes, uncomplicated; R50.9 Fever, unspecified; B19.20 Unspecified viral hepatitis C without hepatic coma; D72.829 Elevated white blood cell count, unspecified; R13.10 Dysphagia, unspecified; R19.7 Diarrhea, unspecified; Z87.820 Personal history of traumatic brain injury
CPT/HCPCS: 36415; 51702; 70450; 71045; 80048; 80053; 81003; 81015; 82550; 82805; 83605; 84146; 85025; 87040; 87086; 87149; 87324; 87449; 93005; 94002; 94003; 96361; 96365; 96366; 99292; J1650; J1953; J2060; J2543; J3010; J3370; J3490; Q2009; S0028